=== PATIENT | male | born 2005 | race Caucasian/White ===

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

== ENCOUNTER 2024-07-04 17:52 | Emergency (ER) | payer BC ==
[2024-07-04] MEDS ORDERED: ONDANSETRON 4 MG/2 ML VIAL ONE (18:42)
[2024-07-04] MEDS ORDERED: NA CHLORIDE 0.9% 1,000 ML ONE (18:42)
[2024-07-04 18:43] LABS: Absolute Eosinophils 0.4 K/uL (0-0.5); Absolute Monocytes 0.7 K/uL (0.1-1.3); Absolute Neutrophil 5.8 K/uL (1.8-8.0); Basophils % 0.4 % (0-1.3); Eosinophils % 4.8 % (0-4.4); Hematocrit 40.9 % (39.6-49.0); Lymphocytes % 13.1 % (15.3-44.8); MCH 29.7 pg (27.0-35.0); MCHC 34.3 g/dL (32.0-36.0); MCV 86.5 fL (80-100); MPV 7.8 fL (7.6-11.3); Monocytes % 8.6 % (3.3-12.3); Neutrophils % 73.1 % (41.7-73.7); Platelets 212 thou/uL (152-406); RBC Red Blood Cell Count 4.73 M/uL (4.33-5.43); Red Cell Distribution Width 13.2 % (12.1-15.2)
[2024-07-04 18:52] LABS: Anion Gap 7.4 mEq/L (5.0-15.0); BUN Blood Urea Nitrogen 10 mg/dL (7-18); Bicarbonate 29 mEq/L (21-32); Glomerular Filtration Rate 107 ml/min (=/>90); Glucose Level 96 mg/dL (74-106); Potassium 3.4 mEq/L (3.5-5.1); Sodium Level 136 mEq/L (136-145)
[2024-07-04 18:55] LABS: Troponin High Sensitivity < 3.0 pg/mL (<58.9)
[2024-07-04 19:04] LABS: Influenza A Ag Negative; Influenza B Ag Negative; SARS-CoV-2 Antigen Rapid Res Negative (Negative)
--- NOTE | 2024-07-04 19:04 | RAD REPORT ---
Procedure: Chest Single View HISTORY: Chest pain COMPARISON: none FINDINGS: The lungs appear clear of acute infiltrate. No significant pleural effusion noted. The heart is normal size. IMPRESSION: No acute abnormality is displayed.
--- NOTE | 2024-07-04 19:54 | ER ---
Nurse's Notes [facility] Name: Fabián Wilkins Age: 18 yrs Sex: Male : 2005 Arrival Date: 07/04/2024 Time: 17:52 Bed 13 Private MD: Diagnosis: Syncope Near Presentation: 07/04 18:09 Chief complaint: EMS states: Near syncopal episode while standing at work. Has been hb under a lot of stress, not taking previously prescribed psych meds. Coronavirus screen: At this time, the client does not indicate any symptoms associated with coronavirus-19. Ebola Screen: No symptoms or risks identified at this time. Initial Sepsis Screen: Does the patient meet any 2 criteria? No. Patient's initial sepsis screen is negative. Does the patient have a suspected source of infection? No. Patient's initial sepsis screen is negative. Risk Assessment: Do you want to hurt yourself or someone else? Patient reports no desire to harm self or others. Onset of symptoms was July 04, 2024. 18:09 Method Of Arrival: EMS: [facility] 18:09 Acuity: JONATHAN 3 hb Historical: - Allergies: 18:10 No Known Allergies; hb - PMHx: 18:10 adhd; depressive disorder; diabetes mellitus; hb - Immunization history:: Adult Immunizations up to date. - Infectious Disease History:: Denies. - Social history:: Smoking status: Patient denies any tobacco usage or history of. Screenin:20 [facility] ED Fall Risk Assessment (Adult) History of falling in the last 3 months, kj2 including since admission No falls in past 3 months (0 pts) Confusion or Disorientation No (0 pts) Intoxicated or Sedated No (0 pts) Impaired Gait No (0 pts) Mobility Assist Device Used No (0 pt) Altered Elimination No (0 pt) Score/Fall Risk Level 0 - 2 = Low Risk Maintained a safe environment, Hourly rounding (assess needs \T\ fall precautionary measures) done. Abuse screen: Denies threats or abuse. Denies injuries from another. Nutritional screening: No deficits noted. Tuberculosis screening: No symptoms or risk factors identified. Assessment: 18:20 General: Appears in no apparent distress. Behavior is calm, cooperative. Pain: Denies kj2 pain. Neuro: Level of Consciousness is awake, alert, obeys commands, Oriented to person, place, time, situation. Cardiovascular: Patient's skin is warm and dry. Respiratory: Airway is patent Respiratory effort is even, unlabored. GI: No signs and/or symptoms were reported involving the gastrointestinal system. : No signs and/or symptoms were reported regarding the genitourinary system. 19:20 Reassessment: Patient appears in no apparent distress at this time. Patient and/or kj2 family updated on plan of care and expected duration. Pain level reassessed. Patient is alert, oriented x 3, equal unlabored respirations, skin warm/dry/pink. 20:11 Reassessment: Patient appears in no apparent distress at this time. Patient and/or kj2 family updated on plan of care and expected duration. Pain level reassessed. Patient is alert, oriented x 3, equal unlabored respirations, skin warm/dry/pink. Vital Signs: 18:09 BP 127 / 79; Pulse 79; Resp 18; Temp 98.2; Pulse Ox 100% on R/A; Pain 0/10; hb 19:20 BP 134 / 76; Pulse 84; Resp 18; Pulse Ox 100% ; kj2 20:11 BP 130 / 72; Pulse 80; Resp 18; Temp 98.2; Pulse Ox 100% on R/A; kj2 18:09 Pain Scale: Adult hb ED Course: 18:00 Patient arrived in ED. sb4 18:01 Magdalene Weir PA-C is PHCP. sb4 18:01 Alex Lewis MD is Attending Physician. sb4 18:10 Triage completed. hb 18:10 Arm band placed on. hb 18:13 Eli Ferreira, RN is Primary Nurse. kj2 18:32 Group A Streptococcus Rapid Sent. kj2 18:32 COVID-19 Ag + Flu A+B Ag Sent. kj2 18:35 Patient has correct armband on for positive identification. Provided Education on: call kj2 light. 19:01 XRAY Chest (1 view) In Process Unspecified. EDMS 19:30 EKG done, by medication reconciliation technician. af3 19:53 Kash Estevez MD is Referral Physician. sb4 20:11 No provider procedures requiring assistance completed. IV discontinued, intact, kj2 bleeding controlled, No redness/swelling at site. Pressure dressing applied. Administered Medications: 18:48 Drug: NS 0.9% IV 1000 ml IV at 1 bolus Per protocol; to be given as a bolus over 60 kj2 minutes Route: IV; Rate: 1 bolus; Site: right antecubital; 20:12 Follow up: IV Status: Completed infusion; IV Intake: 1000ml kj2 18:48 Drug: Ondansetron IVP 4 mg IVP once; over 2 minutes Route: IVP; Site: right antecubital;kj2 20:12 Follow up: Response: No adverse reaction kj2 Medication: 18:35 VIS not applicable for this client. kj2 Intake: 20:12 IV: 1000ml; Total: 1000ml. kj2 Outcome: 19:53 Discharge ordered by MD. sb4 20:11 Discharged to home ambulatory, with family, kj2 20:11 Condition: stable 20:11 Discharge instructions given to patient, Instructed on discharge instructions, follow up and referral plans. medication usage, Demonstrated understanding of instructions, follow-up care, medications, 20:18 Patient left the ED. kj2 Signatures: Dispatcher [employer] EDMS Yvette Griffin, RN RN Magdalene Frye, PA-C PA-C [email or web address] Eli Ferreira RN RN kj2 Judy Barth
--- NOTE | 2024-07-04 19:54 | EDPHYS ---
Physician Documentation [facility] Name: Fabián Wilkins Age: 18 yrs Sex: Male : 2005 Arrival Date: 07/04/2024 Time: 17:52 Bed 13 Private MD: ED Physician Alex Lewis HPI: 07/04 18:13 This 18 yrs old Male presents to ER via EMS with complaints of Near Syncope. sb4 18:13 Patient states that he was working at [employer] when he started to feel sb4 lightheaded, dizzy, and overheated. States that he has had syncopal episodes in the past so he relieves himself from his drive and called the ambulance to be evaluated. States that he has been under a lot of stress lately as he has a child on the way. States that he used to be on psychiatric medication but has not been anymore because his grandfather took them away from him. States that he felt better when he was on those medications, but he does not know what the names of them are. Historical: - Allergies: 18:10 No Known Allergies; hb - PMHx: 18:10 adhd; depressive disorder; diabetes mellitus; hb - Immunization history:: Adult Immunizations up to date. - Infectious Disease History:: Denies. - Social history:: Smoking status: Patient denies any tobacco usage or history of. ROS: 18:13 Constitutional: Negative for fever, chills, and weight loss, sb4 18:13 Neuro: Positive for near syncope, 18:13 All other systems are negative, Exam: 18:13 Constitutional: This is a well developed, well nourished patient who is awake, alert, sb4 and in no acute distress. Head/Face: Normocephalic, atraumatic. Eyes: Extra-ocular motions intact. Periorbital areas with no swelling, redness, or edema. Cardiovascular: Regular rate and rhythm with a normal S1 and S2. Respiratory: No increased work of breathing, no retractions or nasal flaring. Abdomen/GI: Soft, non-tender, no distension. Skin: Warm, dry with normal turgor. Normal color with no rashes, no lesions, and no evidence of cellulitis. 18:13 Constitutional: The patient appears alert, awake, unkempt, smells of RYLAN Vital Signs: 18:09 BP 127 / 79; Pulse 79; Resp 18; Temp 98.2; Pulse Ox 100% on R/A; Pain 0/10; hb 19:20 BP 134 / 76; Pulse 84; Resp 18; Pulse Ox 100% ; kj2 20:11 BP 130 / 72; Pulse 80; Resp 18; Temp 98.2; Pulse Ox 100% on R/A; kj2 18:09 Pain Scale: Adult hb MDM: 18:01 Medical Screening Exam initiated sb4 19:52 Data reviewed: vital signs, nurses notes, EMS record, lab test result(s), EKG, sb4 radiologic studies, and as a result, I will discharge patient. Counseling: I had a detailed discussion with the patient and/or guardian regarding the historical points, exam findings, and any diagnostic results supporting the discharge/admit diagnosis, lab results, radiology results, the need for outpatient follow up, for definitive care, to return to the emergency department if symptoms worsen or persist or if there are any questions or concerns that arise at home. 07/04 18:08 Order name: Basic Metabolic Panel; Complete Time: 18:56 4 07/04 18:08 Order name: CBC with Diff; Complete Time: 18:45 sb4 07/04 18:08 Order name: Troponin HS; Complete Time: 18:56 4 07/04 18:08 Order name: COVID-19 Ag + Flu A+B Ag; Complete Time: 19:05 4 07/04 18:08 Order name: Group A Streptococcus Rapid; Complete Time: 19:11 [facility] 07/04 19:13 Order name: Throat Culture [facility] 07/04 18:08 Order name: XRAY Chest (1 view); Complete Time: 19:06 sb4 07/04 18:08 Order name: Cardiac monitoring; Complete Time: 19:30 sb4 07/04 18:08 Order name: EKG - Nurse/Tech; Complete Time: 19:30 sb4 07/04 18:08 Order name: IV Saline Lock; Complete Time: 18:32 sb4 07/04 18:08 Order name: Labs collected and sent; Complete Time: 18:32 sb4 07/04 18:08 Order name: O2 Per Protocol; Complete Time: 18:32 sb4 07/04 18:08 Order name: O2 Sat Monitoring; Complete Time: 19:30 sb4 07/04 19:11 Order name: PO challenge; Complete Time: 19:56 sb4 EC:33 Rate is 78 beats/min. Rhythm is regular, Normal Sinus Rhythm. ND interval is normal at sb4 148 msec. QRS interval is normal at 108 msec. QT interval is normal at 370 msec. No Q waves. T waves are Normal. No ST changes noted. Clinical impression: Normal ECG. Interpreted by me. Reviewed by me. Administered Medications: 18:48 Drug: NS 0.9% IV 1000 ml IV at 1 bolus Per protocol; to be given as a bolus over 60 kj2 minutes Route: IV; Rate: 1 bolus; Site: right antecubital; 20:12 Follow up: IV Status: Completed infusion; IV Intake: 1000ml kj2 18:48 Drug: Ondansetron IVP 4 mg IVP once; over 2 minutes Route: IVP; Site: right antecubital;kj2 20:12 Follow up: Response: No adverse reaction kj2 Disposition Summary: 07/04/24 19:53 Discharge Ordered Notes: Location: Home sb4 Problem: new sb4 Symptoms: have improved sb4 Condition: Stable sb4 Diagnosis - Syncope Near sb4 Followup: sb4 - With: Kash Estevez MD - When: 2 - 3 days - Reason: Recheck today's complaints, Re-evaluation by your physician Discharge Instructions: - Discharge Summary Sheet sb4 - Near-Syncope sb4 - Asthma Action Plan, Adult sb4 Forms: - Work release form sb4 - Patient Portal Instructions sb4 - Leadership Thank You Letter sb4 Prescriptions: - albuterol sulfate 90 mcg/actuation Inhalation HFA Aerosol Inhaler - inhale 2 puff INHALATION route every 2 hours PRN wheezing; 1 Applicator; sb4 Refills: 0, Product Selection Permitted Signatures: Dispatcher [employer] EDMS Yvette Griffin RN RN hb Brown, Sophia, PA-C PA-C sb4 Eli Ferreira RN RN kj2 Corrections: (The following items were deleted from the chart) 18:08 18:08 BASIC METABOLIC PANEL+C.LAB.BRZ ordered. EDMS EDMS 18:08 18:08 CBC+H.LAB.BRZ ordered. EDMS EDMS 18:08 18:08 Troponin High Sensitivity+C.LAB.BRZ ordered. EDMS EDMS : 18:08 COVID-19 Ag + Flu A+B Ag+I.LAB.BRZ ordered. EDMS EDMS : 18:08 Group A Streptococcus Rapid Sc+I.LAB.BRZ ordered. EDMS EDMS : 18:08 Chest Single View+RAD.RAD.BRZ ordered. EDMS EDMS
[2024-07-04 20:51] VITALS: TEMP 98.2; O2SAT 100
[2024-07-04 20:53] VITALS: BP 130/72
--- NOTE | 2024-07-06 11:04 | EKG ---
Test Date: 2024-07-04 Test Time: 19:28:37 Science Analyst: AF MEASUREMENT RESULTS: Intervals: Rate: 78 IA: 148 QRSD: 108 QT: 370 QTc: 421 [place]: P: 47 IA: 148 QRS: 75 T: 69 INTERPRETIVE STATEMENTS: Normal sinus rhythm Normal ECG Compared to ECG 11/13/2023 01:52:18 Sinus arrhythmia no longer present Electronically Signed On 07-06-24 10:59:05 CDT by Дмитрий Ferrer
== END 2024-07-04 20:18 | disposition home or self-care (01) ==
LOC: ER 17:52
DX: R55 Syncope and collapse (principal); Z11.52 Encounter for screening for COVID-19
CPT/HCPCS: 96361; 93005; 87070; 85025; 80048; 36415; 84484; 71045; 96374; 99284; 87428; J2405; J7030